=== PATIENT | female | born 1990 | race Caucasian/White ===

== ENCOUNTER 2022-06-01 22:41 | Emergency (ER) | payer MEDICAID ==
[~2022-06-01] VITALS: Ht 167.6 cm; Wt 104.3 kg
[2022-06-01 22:49] VITALS: BP 123/83
--- NOTE | 2022-06-01 23:40 | NUR ---
31/F BIB SELF C/C "BUMPS" TO VAGINAL AREA SINCE SHE WAS 11YEARS OLD. PT STATES PAIN IS 8/10 AND INTERMITTENT, BUT THESE PAST 2 DAYS PAIN HAS EXACERBATED. PT ALSO C/O DIARRHEA. DENIES ANY N/V, FEVER OR CHILLS. DENIES PMHX, RX NKA
--- NOTE | 2022-06-02 00:36 | NUR ---
ERMD AT BEDSIDE
--- NOTE | 2022-06-02 00:37 | NUR ---
Female Research Administrator accompanied female patient for Pelvic Exam.
[2022-06-02 00:51] LABS: APPEARANCE,URINE SL CLOUDY (CLEAR); BILIRUBIN,URINE NEGATIVE (NEGATIVE); BLOOD, URINE 2+ (NEGATIVE); COLOR,URINE YELLOW (YELLOW); LEUKOCYTE ESTERASE ,URINE NEGATIVE (NEGATIVE); NITRITE, URINE NEGATIVE (NEGATIVE); UGLUCOSE NEGATIVE (NEGATIVE)
[2022-06-02 01:00] LABS: RBC,URINE 0-5 /HPF (0-5)
[2022-06-02 01:01] LABS: WBC,URINE 0-5 /HPF (0-5)
--- NOTE | 2022-06-02 01:58 | NUR ---
PATIENT SITTING IN BED. DENIES PAIN. TURNED OFF LIGHTS FOR COMFORT. ALL NEEDS MET
[2022-06-02] MEDS ORDERED: METR-435 PO (02:00)
[2022-06-02] MEDS ORDERED: NITR100C7 PO (02:00)
[2022-06-02 02:05] VITALS: BP 132/83
--- NOTE | 2022-06-02 02:05 | NUR ---
Patient discharged with v/s stable. Written and verbal after care instructions given and explained. Patient alert, oriented and verbalized understanding of instructions. Ambulatory with steady gait. All questions addressed prior to discharge. ID band removed. Patient advised to follow up with PMD. Rx of NITROFURANTOIN MOONOHYD/M-CRYST AND METRONIDAZOLE given. Patient educated on indication of medication including possible reaction and side effects. Opportunity to ask questions provided and answered.
== END 2022-06-02 02:05 | disposition home or self-care (01) ==
LOC: MED 22:41
DX: N76.0 Acute vaginitis (principal); B96.89 Other specified bacterial agents as the cause of diseases classified elsewhere; F12.90 Cannabis use, unspecified, uncomplicated; Z79.899 Other long term (current) drug therapy; Z98.890 Other specified postprocedural states
CPT/HCPCS: 81001; 81025; 87086; 87210; 87491; 99283